=== PATIENT | male | born 1940 | race Caucasian/White ===

== ENCOUNTER 2019-01-30 23:03 | Observation (INO) | payer MEDICARE ==
[~2019-01-30] VITALS: Ht 182.9 cm; Wt 77.0 kg
[2019-01-30 23:56] LABS: BASOPHILS % (AUTO) 1.1 % (0-1); EOSINOPHILS # (AUTO) 0.1 X10'3 (0-0.9); EOSINOPHILS % (AUTO) 2.2 % (0-6); HEMATOCRIT 41.4 % (42.0-52.0); HEMOGLOBIN 13.9 g/dl (14.0-17.9); LYMPHOCYTES # (AUTO) 1.5 X10'3 (1.1-4.8); LYMPHOCYTES % (AUTO) 34.6 % (21-51); MEAN CORPUSCULAR HEMOGLOBIN 30.4 PG (27.0-31.0); MEAN CORPUSCULAR HGB CONC 33.7 g/dL (33.0-36.5); MEAN CORPUSCULAR VOLUME 90.3 FL (78-98); MEAN PLATELET VOLUME 7.6 FL (7.4-10.4); MONOCYTES # (AUTO) 0.3 X10'3 (0-0.9); MONOCYTES % (AUTO) 6.3 % (2-12); NEUTROPHILS # (AUTO) 2.4 X10'3 (1.8-7.7); NEUTROPHILS % (AUTO) 55.8 % (42-75); PLATELET COUNT 151 X10'3 (140-440); RED BLOOD COUNT 4.58 X10'6 (4.70-6.10); RED CELL DISTRIBUTION WIDTH 14.3 % (11.5-14.5); WHITE BLOOD COUNT 4.3 X10'3 (4.5-11.0)
[2019-01-31] VITALS (15 sets, daily range): BP systolic 115–154; BP diastolic 49–76
[2019-01-31 00:09] LABS: PARTIAL THROMBOPLASTIN TIME 26 SECONDS (22-32)
[2019-01-31 00:11] LABS: ALANINE AMINOTRANSFERASE 28 U/L (12-78); ALBUMIN 3.5 G/DL (3.4-5.0); ALBUMIN/GLOBULIN RATIO 1.3 (1.1-1.5); ALKALINE PHOSPHATASE 90 IU/L (46-116); ANION GAP 9 (8-16); ASPARTATE AMINO TRANSFERASE 21 U/L (10-37); BILIRUBIN,TOTAL 0.5 MG/DL (0.1-1.0); BLOOD UREA NITROGEN 9 MG/DL (7-18); BUN/CREATININE RATIO 12.3 (5.4-32.0); CALCIUM 8.6 MG/DL (8.5-10.1); CHLORIDE 107 MMOL/L (99-107); CREATININE 0.73 MG/DL (0.60-1.10); GLUCOSE 105 MG/DL (70-104); POTASSIUM 4.3 MMOL/L (3.5-5.1); SODIUM 140 MMOL/L (135-145); TOTAL CARBON DIOXIDE 24.4 MMOL/L (24-32); TOTAL PROTEIN 6.2 G/DL (6.4-8.2); eGFR > 90 ML/MIN
[2019-01-31] MEDS ORDERED: magnesium hydroxide 30ml (MOM) UD suspension PO PRN (00:45)
[2019-01-31] MEDS ORDERED: ondansetron/PF 4mg/2ml inj IV PRN (00:45)
[2019-01-31] MEDS ORDERED: acetaminophen 325mg tablet PO PRN ×2 (00:45)
[2019-01-31] MEDS ORDERED: aminophylline 250mg/10ml inj. IV PRN ×2 (00:45→01:05)
[2019-01-31] MEDS ORDERED: regadenoson 0.4mg/5ml syringe IV ONE (00:45)
[2019-01-31] MEDS ORDERED: mag hydrox/Alum hydrox/simeth 30ml oral suspension PO PRN (00:45)
[2019-01-31] MEDS ORDERED: metoprolol tartrate 1mg/ml inj IV PRN (00:45)
[2019-01-31] MEDS ORDERED: HYDROcodone/acetaminophen 5mg/325mg tablet PO PRN (00:45)
[2019-01-31] MEDS ORDERED: nitroGLYCERIN 0.4mg SUBLingual tab SL PRN (00:45)
[2019-01-31] MEDS ORDERED: regadenoson 0.4mg/5ml syringe IV PRN (01:05)
[2019-01-31] MEDS: normal saline 1000ml 1,000 ML IV SCH ×3 (01:18→13:00)
[2019-01-31] MEDS ORDERED: BIMA2.5D OP (01:20)
[2019-01-31] MEDS ORDERED: TEMA30CA5 PO (01:20)
--- NOTE | 2019-01-31 02:04 | NUR ---
Patient in room PCU 3013. I have received report from Ewelina RODRIGUES and had the opportunity to ask questions and assume patient care.
--- NOTE | 2019-01-31 06:20 | NUR ---
Patient in room PCU 3013. I have received report from Emmett RODRIGUES and had the opportunity to ask questions and assume patient care.
--- NOTE | 2019-01-31 06:30 | NUR ---
Problems reprioritized. Patient report given, questions answered & plan of care reviewed with Negro RODRIGUES.
[2019-01-31 08:58] LABS: MAGNESIUM 2.1 MG/DL (1.5-2.4)
--- NOTE | 2019-01-31 12:41 | NUR ---
PAGER ID: [phone] MESSAGE: Re: Heladio Case, Room: 3013B. Regina scan came back negative. Can Pt eat now? -[facility] #[id number] _Dr. Hernandez paged concerning Pt NPO status post Lexiscan
--- NOTE | 2019-01-31 17:36 | NUR ---
PAGER ID: [phone] MESSAGE: Re: Heladio Manpreet, Room: 3013b. 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 -Negro PCU Dr. Hernandez paged concerning if Pt has ride and place to stay if DC'd tonight
[2019-01-31] MEDS ORDERED: COR3.125T PO (17:48)
--- NOTE | 2019-01-31 18:30 | NUR ---
Problems reprioritized. Patient report given, questions answered & plan of care reviewed with Kailee RODRIGUES.
--- NOTE | 2019-01-31 18:31 | NUR ---
Patient in room PCU 3013. I have received report from Negro RODRIGUES and had the opportunity to ask questions and assume patient care.
--- NOTE | 2019-01-31 19:30 | NUR ---
PT HAS BEEN DISCHARDED, ALL DOCUMENTATION AND HANDOUTS HAS BEEN PROVIDED TO PT, IV AND tELE MONITOR WAS REMOVED
[2019-01-31] MEDS ORDERED: carVEDilol 3.125mg tablet PO SCH (20:00)
[2019-01-31] MEDS ORDERED: non-formulary drug (Temazepam* (Restoril*) 1 CAP) PO SCH (21:00)
[2019-01-31] MEDS ORDERED: latanoprost 0.005% 2.5ml ophthalmic drops EACHEYE SCH (21:00)
[2019-01-31] MEDS ORDERED: temazepam 15mg capsule PO PRN (21:00)
== END 2019-01-31 18:45 | disposition home or self-care (01) ==
LOC: ER 23:05 → PCU 3S 01-31 01:50 → CMPBEDREQ 01-31 02:13
PROVIDERS: ADMIT Hospitalist; ATTEND Hospitalist
DX: R00.8 Other abnormalities of heart beat (principal); R00.2 Palpitations; R07.89 Other chest pain; I25.2 Old myocardial infarction; H40.9 Unspecified glaucoma; R42 Dizziness and giddiness; Z82.49 Family history of ischemic heart disease and other diseases of the circulatory system; Z87.891 Personal history of nicotine dependence; Z85.46 Personal history of malignant neoplasm of prostate
CPT/HCPCS: 36415; 71045; 78452; 80053; 83735; 84484; 85025; 85610; 85730; 87081; 93005; 93017; 93306; 96361; 96374; 99284; A9500; G0378; J0280; J2785; J7030

== ENCOUNTER 2019-05-14 05:41 | Day surgery (SDC) | payer MEDICARE ==
[2019-05-13 13:06] LABS: BASOPHILS % (AUTO) 0.9 % (0-1); EOSINOPHILS # (AUTO) 0.1 X10'3 (0-0.9); EOSINOPHILS % (AUTO) 2.7 % (0-6); HEMATOCRIT 41.3 % (42.0-52.0); HEMOGLOBIN 14.1 g/dl (14.0-17.9); LYMPHOCYTES # (AUTO) 1.7 X10'3 (1.1-4.8); LYMPHOCYTES % (AUTO) 33.9 % (21-51); MEAN CORPUSCULAR HGB CONC 34.2 g/dL (33.0-36.5); MEAN CORPUSCULAR VOLUME 90.7 FL (78-98); MEAN PLATELET VOLUME 7.9 FL (7.4-10.4); MONOCYTES # (AUTO) 0.3 X10'3 (0-0.9); NEUTROPHILS # (AUTO) 2.7 X10'3 (1.8-7.7); NEUTROPHILS % (AUTO) 55.5 % (42-75); PLATELET COUNT 159 X10'3 (140-440); RED BLOOD COUNT 4.56 X10'6 (4.70-6.10); RED CELL DISTRIBUTION WIDTH 14.2 % (11.5-14.5); WHITE BLOOD COUNT 4.9 X10'3 (4.5-11.0)
[2019-05-13 13:14] LABS: PARTIAL THROMBOPLASTIN TIME 25 SECONDS (22-32)
[2019-05-13 13:16] LABS: ALBUMIN 3.8 G/DL (3.4-5.0); ANION GAP 4 (8-16); BLOOD UREA NITROGEN 11 MG/DL (7-18); BUN/CREATININE RATIO 13.4 (5.4-32.0); CALCIUM 8.9 MG/DL (8.5-10.1); CHLORIDE 105 MMOL/L (99-107); CREATININE 0.82 MG/DL (0.60-1.10); GLUCOSE 97 MG/DL (70-104); POTASSIUM 4.3 MMOL/L (3.5-5.1); SODIUM 140 MMOL/L (135-145); eGFR > 90 ML/MIN
[~2019-05-14] VITALS: Ht 182.9 cm; Wt 80.6 kg
[2019-05-14] VITALS (8 sets, daily range): BP systolic 118–171; BP diastolic 64–93
[~2019-05-14 05:41] MED LIST: BIMA2.5D OP; COR3.125T PO; TEMA30CA5 PO
[2019-05-14] MEDS ORDERED: METO25TA6 PO (06:27)
[2019-05-14] MEDS ORDERED: LATA2.5D2 (06:27)
[2019-05-14] MEDS: normal saline 1000ml 1,000 ML IV SCH ×2 (06:52→11:08)
[2019-05-14] MEDS ORDERED: ceFAZolin 2gm in dextrose, iso 100 ML IV ONE (07:05)
[2019-05-14] MEDS ORDERED: ceFAZolin 1000mg inj ONE (08:03)
[2019-05-14] MEDS ORDERED: midazolam 2 mg/2 ml injection ONE ×2 (08:03→08:42)
[2019-05-14] MEDS ORDERED: fentaNYL/PF 50MCG/1 ML 2ML syringe ONE (08:03)
[2019-05-14] MEDS ORDERED: LIDOcaine 1% W/epiNEPHrine 1:100,000 20ml vial ONE ×2 (08:03→08:40)
[2019-05-14] MEDS ORDERED: verapamil 2.5 mg/ml inj IV ONE (08:54)
[2019-05-14] MEDS ORDERED: amiodarone 50MG/ML inj IV ONE (09:16)
[2019-05-14] MEDS ORDERED: HYDROcodone/acetaminophen 10/325mg tab PO PRN (10:25)
[2019-05-14] MEDS ORDERED: HYDROcodone/acetaminophen 5mg/325mg tablet PO PRN (10:25)
== END 2019-05-14 16:15 | disposition home or self-care (01) ==
LOC: SSTAY O 05:41
PROVIDERS: ATTEND Internal Medicine Cardiovascular Disease
DX: I49.5 Sick sinus syndrome (principal); Z85.46 Personal history of malignant neoplasm of prostate; Z98.890 Other specified postprocedural states; F17.210 Nicotine dependence, cigarettes, uncomplicated; I47.1 Supraventricular tachycardia; I10 Essential (primary) hypertension; Z72.89 Other problems related to lifestyle; Z79.01 Long term (current) use of anticoagulants
CPT/HCPCS: 33208; 36415; 71046; 80048; 85025; 85610; 85730; 93005; 99152; 99153; C1785; C1894; C1898; J0282; J0690; J2250; J3010; J3370; J7030; A4565; A4620; A6258; A6449

== ENCOUNTER 2021-05-05 07:15 | Day surgery (SDC) | payer MEDICARE ==
[~2021-05-05] VITALS: Ht 182.9 cm; Wt 77.9 kg
[2021-05-05] VITALS (19 sets, daily range): BP systolic 106–150; BP diastolic 57–88
[~2021-05-05 07:15] MED LIST changes: -COR3.125T PO; +LATA2.5D14; +LOP25T PO
[2021-05-05] MEDS ORDERED: LORazepam 0.5 MG tablet PO ONE (07:45)
[2021-05-05] MEDS ORDERED: MIDAZolam 1mg/ml 10ml vial IV ONE (07:45)
[2021-05-05] MEDS ORDERED: morphine 10mg/ml inj. IV ONE (07:45)
[2021-05-05] MEDS ORDERED: normal saline 1000ml 1,000 ML IV SCH (07:45)
[2021-05-05] MEDS ORDERED: atropine 0.1mg/ml 10ml syringe IV ONE (07:45)
[2021-05-05] MEDS ORDERED: amiodarone 150mg/dext, iso-os 100 ML IV ONE (07:50)
[2021-05-05] MEDS ORDERED: diphenhydrAMINE 25mg capsule PO ONE (07:50)
[2021-05-05] MEDS ORDERED: DOCU-148 PO (08:02)
[2021-05-05] MEDS ORDERED: LORA2TAB96 PO (08:02)
[2021-05-05] MEDS ORDERED: METO50TA16 PO (08:02)
[2021-05-05] MEDS ORDERED: RIVA20TA PO (08:02)
[2021-05-05 08:06] LABS: EOSINOPHILS # (AUTO) 0.1 X10'3 (0-0.9); HEMOGLOBIN 14.1 g/dl (14.0-17.9); MEAN PLATELET VOLUME 7.3 FL (7.4-10.4); MONOCYTES # (AUTO) 0.2 X10'3 (0-0.9); MONOCYTES % (AUTO) 6.8 % (2-12)
[2021-05-05 08:10] LABS: BASOPHILS % (AUTO) 1.3 % (0-1); EOSINOPHILS % (AUTO) 3.4 % (0-6); HEMATOCRIT 40.9 % (42.0-52.0); LYMPHOCYTES % (AUTO) 34.2 % (21-51); MEAN CORPUSCULAR HEMOGLOBIN 31.3 PG (27.0-31.0); MEAN CORPUSCULAR HGB CONC 34.5 g/dL (33.0-36.5); MEAN CORPUSCULAR VOLUME 90.8 FL (78-98); NEUTROPHILS # (AUTO) 1.5 X10'3 (1.8-7.7); NEUTROPHILS % (AUTO) 54.3 % (42-75); PLATELET COUNT 151 X10'3 (140-440); RED CELL DISTRIBUTION WIDTH 14.4 % (11.5-14.5); WHITE BLOOD COUNT 2.9 X10'3 (4.5-11.0)
[2021-05-05 08:11] LABS: ALBUMIN 3.5 G/DL (3.4-5.0); ANION GAP 7 (8-16); BLOOD UREA NITROGEN 18 MG/DL (7-18); BUN/CREATININE RATIO 19.4 (5.4-32.0); CALCIUM 8.6 MG/DL (8.5-10.1); CHLORIDE 106 MMOL/L (99-107); CREATININE 0.93 MG/DL (0.60-1.10); GLUCOSE 105 MG/DL (70-104); POTASSIUM 4.5 MMOL/L (3.5-5.1); SODIUM 141 MMOL/L (135-145); TOTAL CARBON DIOXIDE 27.8 MMOL/L (24-32); eGFR 79 ML/MIN
[2021-05-05 09:51] LABS: PLATELET ESTIMATE NORMAL; TOTAL CELLS COUNTED 100
== END 2021-05-05 13:00 | disposition home or self-care (01) ==
LOC: SSTAY O 07:15
PROVIDERS: ATTEND Internal Medicine Cardiovascular Disease
DX: I48.0 Paroxysmal atrial fibrillation (principal); I47.1 Supraventricular tachycardia; I10 Essential (primary) hypertension; Z79.01 Long term (current) use of anticoagulants; Z79.899 Other long term (current) drug therapy; Z85.46 Personal history of malignant neoplasm of prostate; Z95.0 Presence of cardiac pacemaker; Z90.79 Acquired absence of other genital organ(s); Z87.891 Personal history of nicotine dependence; Z82.49 Family history of ischemic heart disease and other diseases of the circulatory system
CPT/HCPCS: 36415; 80048; 85025; 85610; 92960; 93005; 94760; 94799; J0282; J2250; J2274; J7030; 85007

== ENCOUNTER 2024-02-07 06:53 | Day surgery (SDC) | payer MEDICARE, OTHER ==
[2024-02-06 14:42] LABS: BASOPHILS % (AUTO) 1.3 % (0-1); EOSINOPHILS % (AUTO) 1.2 % (0-6); HEMOGLOBIN 13.4 g/dl (14.0-17.9); LYMPHOCYTES # (AUTO) 1.2 X10'3 (1.1-4.8); MEAN CORPUSCULAR HEMOGLOBIN 31.4 PG (27.0-31.0); MEAN CORPUSCULAR HGB CONC 33.5 g/dL (33.0-36.5); MEAN CORPUSCULAR VOLUME 93.8 FL (78-98); MEAN PLATELET VOLUME 7.7 FL (7.4-10.4); MONOCYTES # (AUTO) 0.3 X10'3 (0-0.9); MONOCYTES % (AUTO) 8.4 % (2-12); NEUTROPHILS # (AUTO) 2.3 X10'3 (1.8-7.7); NEUTROPHILS % (AUTO) 59.1 % (42-75); PLATELET COUNT 132 X10'3 (140-440); RED BLOOD COUNT 4.26 X10'6 (4.70-6.10); WHITE BLOOD COUNT 3.9 X10'3 (4.5-11.0)
[2024-02-06 14:48] LABS: ALBUMIN 3.6 G/DL (3.4-5.0); ANION GAP 7 (8-16); BLOOD UREA NITROGEN 14 MG/DL (7-18); BUN/CREATININE RATIO 21.5 (10.0-20.0); CALCIUM 8.9 MG/DL (8.5-10.1); CHLORIDE 105 MMOL/L (99-107); CREATININE 0.65 MG/DL (0.60-1.10); GLUCOSE 87 MG/DL (70-104); SODIUM 139 MMOL/L (135-145); TOTAL CARBON DIOXIDE 26.6 MMOL/L (24-32); eGFR > 90 ML/MIN
[2024-02-06 14:51] LABS: APTT 27 SECONDS (22-32); INR 1.1 INR; PROTHROMBIN TIME 11.6 SECONDS (9.0-12.0)
[~2024-02-07] VITALS: Ht 182.9 cm; Wt 74.3 kg
[2024-02-07] VITALS (12 sets, daily range): BP systolic 102–159; BP diastolic 41–121; PULSE 79–84; RESP 11–17; TEMP 97.8; O2SAT 96–100
[~2024-02-07 06:53] MED LIST changes: -BIMA2.5D OP; +DOCU-148 PO; -LOP25T PO; +LORA2TAB96 PO; +METO50TA16 PO; +RIVA20TA PO; -TEMA30CA5 PO
[2024-02-07] MEDS ORDERED: LOSA25TA41 PO (07:20)
[2024-02-07] MEDS ORDERED: AMIO100T4 PO (07:20)
[2024-02-07] MEDS ORDERED: METO-411 PO (07:22)
[2024-02-07] MEDS: LORazepam 0.5 MG tablet PO PRN (08:15)
[2024-02-07] MEDS: normal saline 1,000 ML IV SCH (08:16)
[2024-02-07] MEDS: diphenhydrAMINE 25mg capsule PO PRN (08:16)
[2024-02-07] MEDS ORDERED: verapamil 2.5 mg/ml inj IV ONE (08:55)
[2024-02-07] MEDS ORDERED: LIDOcaine 1% (10mg/ml) 2ml vial ONE (08:55)
[2024-02-07] MEDS ORDERED: heparin 1,000unit/ml 10ml vial 10 ML ONE (08:56)
[2024-02-07] MEDS ORDERED: iohexol 350 MG/ML 50ML vial IV ONE (08:56)
[2024-02-07] MEDS ORDERED: midazolam 1 mg/ML 2ml injection ONE (08:56)
[2024-02-07] MEDS ORDERED: fentaNYL/PF 50MCG/1 ML 2ML syringe ONE (08:56)
[2024-02-07] MEDS ORDERED: iohexol 350MG/ML 100ml bottle IV ONE (08:56)
[2024-02-07] MEDS ORDERED: FLU VACC TS2024-25(6MOS UP)/PF 45 MCG/0.5 ML SYRINGE IMVAC ONE (09:10)
[2024-02-07] MEDS ORDERED: LIDOcaine 1% 30ml preserv. free vial ONE (09:36)
[2024-02-07] MEDS ORDERED: SPIR25TA5 PO (14:55)
[2024-02-07] MEDS ORDERED: ROSU40TA PO (14:55)
== END 2024-02-07 15:30 | disposition home or self-care (01) ==
LOC: SSTAY O 06:53
PROVIDERS: ATTEND Internal Medicine Cardiovascular Disease
DX: T82.855A Stenosis of coronary artery stent, initial encounter (principal); R94.39 Abnormal result of other cardiovascular function study; I25.10 Atherosclerotic heart disease of native coronary artery without angina pectoris; I48.0 Paroxysmal atrial fibrillation; I48.92 Unspecified atrial flutter; I10 Essential (primary) hypertension; G47.30 Sleep apnea, unspecified; Z85.46 Personal history of malignant neoplasm of prostate; Z79.01 Long term (current) use of anticoagulants; Z79.899 Other long term (current) drug therapy; Z90.79 Acquired absence of other genital organ(s); Z95.0 Presence of cardiac pacemaker; Z98.890 Other specified postprocedural states; Z23 Encounter for immunization; Z82.49 Family history of ischemic heart disease and other diseases of the circulatory system; Y83.8 Other surgical procedures as the cause of abnormal reaction of the patient, or of later complication, without mention of misadventure at the time of the procedure; Y92.89 Other specified places as the place of occurrence of the external cause
CPT/HCPCS: 36415; 80048; 85025; 85610; 85730; 90471; 90686; 93005; 93458; 99152; 99153; A4615; A6258; A6402; C1725; C1760; C1894; J1644; J2001; J2250; J3010; J3490; J7030; Q0163; Q9967; Z7610; 76937; A6449

== ENCOUNTER 2024-05-02 06:11 | Day surgery (SDC) | payer MEDICARE, OTHER ==
[2024-05-01 16:30] LABS: EOSINOPHILS % (AUTO) 1.1 % (0-6); HEMATOCRIT 39.7 % (42.0-52.0); HEMOGLOBIN 13.5 g/dl (14.0-17.9); LYMPHOCYTES # (AUTO) 1.1 X10'3 (1.1-4.8); LYMPHOCYTES % (AUTO) 28.6 % (21-51); MEAN CORPUSCULAR HEMOGLOBIN 32.2 PG (27.0-31.0); MEAN CORPUSCULAR VOLUME 94.8 FL (78-98); MEAN PLATELET VOLUME 7.6 FL (7.4-10.4); MONOCYTES # (AUTO) 0.3 X10'3 (0-0.9); MONOCYTES % (AUTO) 7.6 % (2-12); NEUTROPHILS # (AUTO) 2.4 X10'3 (1.8-7.7); NEUTROPHILS % (AUTO) 61.7 % (42-75); PLATELET COUNT 132 X10'3 (140-440); RED BLOOD COUNT 4.19 X10'6 (4.70-6.10); RED CELL DISTRIBUTION WIDTH 14.6 % (11.5-14.5); WHITE BLOOD COUNT 3.9 X10'3 (4.5-11.0)
[2024-05-01 16:38] LABS: ALBUMIN 3.8 G/DL (3.4-5.0); ANION GAP 6 (8-16); BLOOD UREA NITROGEN 19 MG/DL (7-18); BUN/CREATININE RATIO 14.5 (10.0-20.0); CALCIUM 8.3 MG/DL (8.5-10.1); CHLORIDE 101 MMOL/L (99-107); CREATININE 1.31 MG/DL (0.60-1.10); GLUCOSE 107 MG/DL (70-104); POTASSIUM 4.3 MMOL/L (3.5-5.1); SODIUM 137 MMOL/L (135-145); TOTAL CARBON DIOXIDE 30.3 MMOL/L (24-32); eGFR 53 ML/MIN
[2024-05-01 16:39] LABS: INR 1.1 INR
[2024-05-01 17:30] LABS: PROTHROMBIN TIME 11.9 SECONDS (9.0-12.0)
[2024-05-02] VITALS (12 sets, daily range): BP systolic 101–143; BP diastolic 57–79; PULSE 75–81; RESP 12–18; TEMP 98.1; O2SAT 95–99
[~2024-05-02] VITALS: Ht 182.9 cm; Wt 73.8 kg
[~2024-05-02 06:11] MED LIST changes: +AMIO100T4 PO; -DOCU-148 PO; +LOSA25TA41 PO; +METO-411 PO; -METO50TA16 PO; +ROSU40TA PO; +SPIR25TA5 PO
[2024-05-02] MEDS ORDERED: diphenhydrAMINE 25mg capsule PO ONE (06:35)
[2024-05-02] MEDS ORDERED: atropine 0.1mg/ml 10ml syringe IV ONE (06:35)
[2024-05-02] MEDS ORDERED: amiodarone 150mg/dext, iso-os 100 ML IV ONE (06:35)
[2024-05-02] MEDS ORDERED: LORazepam 0.5 MG tablet PO ONE (06:35)
[2024-05-02] MEDS ORDERED: AMI200T PO (06:37)
[2024-05-02] MEDS ORDERED: ROSU40TA89 PO (06:37)
[2024-05-02] MEDS ORDERED: METO50TA16 PO (06:41)
[2024-05-02] MEDS: MIDAZolam 1mg/ml 10ml vial IV ONE (10:22)
[2024-05-02] MEDS: normal saline 1000ml 1,000 ML IV SCH (10:23)
[2024-05-02] MEDS: morphine 10mg/ml inj. IV ONE (10:23)
== END 2024-05-02 10:35 | disposition home or self-care (01) ==
LOC: SSTAY O 06:11
PROVIDERS: ATTEND Internal Medicine Cardiovascular Disease
DX: I48.19 Other persistent atrial fibrillation (principal); R94.31 Abnormal electrocardiogram [ECG] [EKG]; I44.7 Left bundle-branch block, unspecified; I48.92 Unspecified atrial flutter; I48.0 Paroxysmal atrial fibrillation; I11.0 Hypertensive heart disease with heart failure; I50.32 Chronic diastolic (congestive) heart failure; I25.10 Atherosclerotic heart disease of native coronary artery without angina pectoris; I42.9 Cardiomyopathy, unspecified; G47.30 Sleep apnea, unspecified; Z85.46 Personal history of malignant neoplasm of prostate; Z79.01 Long term (current) use of anticoagulants; Z79.899 Other long term (current) drug therapy; Z90.79 Acquired absence of other genital organ(s); Z95.0 Presence of cardiac pacemaker; Z82.49 Family history of ischemic heart disease and other diseases of the circulatory system; Z81.8 Family history of other mental and behavioral disorders
CPT/HCPCS: 36415; 80048; 85025; 85610; 92960; 93005; J2250; J2270; J7030; Z7610; J2274

== ENCOUNTER 2024-11-01 21:45 | Emergency (ER) | payer MEDICARE, OTHER ==
[~2024-11-01 21:45] MED LIST changes: +AMI200T PO; -AMIO100T4 PO; -LORA2TAB96 PO; -METO-411 PO; +METO50TA16 PO; -ROSU40TA PO; +ROSU40TA89 PO
[2024-11-01 22:08] VITALS: TEMP 96.8
--- NOTE | 2024-11-01 23:48 | RADIOLOGY REPORT ---
EXAM: CT CT HEAD INDICATION: head strike TECHNIQUE: CT of the head without intravenous contrast. Radiation Dose : 1. Head: CT Dose: CTDI volume is 68 mGy. Dose-length product is 1308 mGy*cm The dose indicators for CT are the volume Computed Tomography (CT) Dose Index (CTDIvol) and the Dose Length Product (DLP), and are measured in units of mGy and mGy-cm, respectively. These indicators are not patient dose, but values generated from the CT scanner acquisition factors. The report includes radiation exposure data for exposures received during this examination. COMPARISON: None FINDINGS: There is no evidence of acute intracranial hemorrhage, extra-axial collection, mass effect, midline s hift, herniation or hydrocephalus. The ventricles, sulci and cisterns are age appropriate. The coulter-white differentiation is intact. Patchy periventricular and subcortical white matter hypoattenuation is nonspecific but may be related to small vessel ischemic disease. Mucosal thickening of the ethmoid sinuses. Mucous retention cysts in the left sphenoid sinus. Mild e ffusion left mastoid air cells. The surrounding soft tissues and osseous structures are unremarkable. IMPRESSION: No acute intracranial abnormality. Small left-sided mastoid effusion. Paranasal sinus disease.
--- NOTE | 2024-11-01 23:52 | RADIOLOGY REPORT ---
EXAMINATIONS: 4 views of the right elbow 2 views of the right forearm CLINICAL HISTORY: RIGHT ARM PAIN COMPARISON: None Findings and impression: Large elbow joint effusion. Transversely oriented and mildly displaced supracondylar fracture. There is questionable intercondylar component involving the trochlea on the anterior projection. Olecranon spurring.
--- NOTE | 2024-11-02 01:16 | Physician Documentation ---
History of Present Illness ~ Chief Complaint: Mechanical Fall Stated Complaint: FALL Time Seen by MD: 22:58 Mode of Arrival: POV HPI 84 year old male with R arm pain/swelling, laceration above R eyebrow, after trip/fall onto cement. Is on blood thinners, does not know why. Denies LOC, was immediately ambulatory after fall. Tetanus within 5 Years?: No Medication Reconciliation Allergies: Coded Allergies: No Known Allergies (Unverified , 11/01/24) Scheduled Amiodarone Hcl (Cordarone), 1 TAB PO BID, (Reported) Losartan Potassium (Losartan Potassium), 1 TAB PO DAILY, (Reported) Metoprolol Tartrate (Metoprolol Tartrate), 2 TAB PO BID, (Reported) Rivaroxaban (Xarelto), 1 TAB PO HS, (Reported) Rosuvastatin Calcium (Rosuvastatin Calcium), 1 TAB PO DAILY, (Reported) Spironolactone (Spironolactone), 1 TAB PO DAILY Miscellaneous Medications Latanoprost (Latanoprost), (Reported) Past Medical History Past Medical History: Myocardial Infarction Past Surgical History: noncontributory Lives with: Spouse Lives In: Home Review of Systems All Other Systems at this time: Reviewed and Negative Physical Exam Vital Signs: RN Vital Signs have been reviewed: Yes, Temperature: 96.8, Source: Temporal, Heart Rate: 72, Respiratory Rate: 16, BP: 125/80, Pulse Oximetry: 100 Physical Exam HEENT: PERRL, moist oral mucosa, EOMI; 1cm full thickness laceration above R eyebrow Pulmonary: No respiratory distress Cardiac: RRR, no murmur, rub or gallop GI: nondistended, soft, nontender, no guarding, no rebound MSK: Swelling and tenderness to R elbow Skin: w/d/i, no rash Neuro: alert, nonfocal Psych: normal affect Procedures Laceration Repair : Anesthesia: Lidocaine w/ Epi Prep: irrigated by physician Debrided: minimal Undermining: none Margins: flaps aligned Foreign Body: not identified Repaired: skin Wound Repaired With: sutures Suture Size/Type: 5-0 Number of Superficial Sutures: 1 Tolerated Procedure Well?: yes, no complications Progress Results/Orders Results/Orders Orders - RADHA STAPLES MD Forearm,Incl.One Joint (11/01/24 22:30) Elbow, Complete (3vw Min) (11/01/24 22:30) Ct Head (11/01/24 23:00) Splint Long Arm Adult/Tech (11/02/24 ) Completed Orders - RADHA STAPLES MD Forearm,Incl.One Joint (11/01/24 22:30) Elbow, Complete (3vw Min) (11/01/24 22:30) Ct Head (11/01/24 23:00) Lidocaine 1% W/Epi 1:100,000 (Xylocaine (11/02/24 01:20) Vital Signs 11/01/24 11/01/24 11/02/24 22:08 23:02 01:43 Temp 96.8 Pulse 72 70 Resp 15 16 16 B/P (MAP) 125/80 110/56 Pulse Ox 100 98 Medical Decision Making Findings 84 year old male as above after ground level fall. Xray demonstrated distal supracondylar humerus fracture. CT head negative for mass/shift/bleed by my interpretation. Placed in long arm splint, will have him follow up with ortho. Return precautions discussed, will road test prior to disposition with family. Differential Dx:Considerations: Include: Fracture(s), Cerebral contusion, Abrasion(s), Contusion(s), Hematoma(s), Encephalopathy Departure Disposition: 01 HOME / SELF CARE / HOMELESS Impression: Primary Impression: Fracture of humerus Additional Impression: Laceration Condition: Stable Discharge Instructions: Fall Prevention in the Home, Adult, [id number] Referrals: NO PRIMARY CARE PROVIDER (PCP) Education Educated: Patient, Family Educated regarding: diagnosis, treatment, prognosis, need for follow up Signature Scribe Signature: . Attestation: . RADHA STAPLES MD Nov 02, 2024 01:16
[2024-11-02] MEDS: LIDOcaine 1% W/epiNEPHrine 1:100,000 20ml vial SQ ONE (01:30)
[2024-11-02 01:43] VITALS: BP 110/56; PULSE 70; RESP 16; O2SAT 98
== END 2024-11-02 01:47 | disposition home or self-care (01) ==
LOC: ER 21:46
DX: S42.411A Displaced simple supracondylar fracture without intercondylar fracture of right humerus, initial encounter for closed fracture (principal); S01.111A Laceration without foreign body of right eyelid and periocular area, initial encounter; R51.9 Headache, unspecified; I25.2 Old myocardial infarction; W01.0XXA Fall on same level from slipping, tripping and stumbling without subsequent striking against object, initial encounter; Y93.89 Activity, other specified; Y92.89 Other specified places as the place of occurrence of the external cause; Y99.8 Other external cause status
CPT/HCPCS: 12011; 70450; 73080; 73090; 99284; A4565; A6258; A6402; A6449; Z7610